=== PATIENT | female | born 2000 | race Two or more races ===

== ENCOUNTER 2025-03-14 01:04 | Emergency (ER) | payer BC ==
[~2025-03-14] VITALS: Ht 160 cm; Wt 49.9 kg
[2025-03-14] MEDS ORDERED: IBUPROFEN 400 MG TABLET ONE (02:15)
[2025-03-14] MEDS: IBUPROFEN 400 MG TABLET PO ONE (02:15)
[2025-03-14 02:24] VITALS: BP 106/80; TEMP 97.7; O2SAT 96
== END 2025-03-14 02:51 | disposition home or self-care (01) ==
LOC: ER 01:20
DX: S13.4XXA Sprain of ligaments of cervical spine, initial encounter (principal); S09.90XA Unspecified injury of head, initial encounter; G44.309 Post-traumatic headache, unspecified, not intractable; V89.2XXA Person injured in unspecified motor-vehicle accident, traffic, initial encounter; Y93.89 Activity, other specified; Y92.410 Unspecified street and highway as the place of occurrence of the external cause; Y99.9 Unspecified external cause status
CPT/HCPCS: 70450-TC; 72125-TC